=== PATIENT | female | born 1995 | race Caucasian/White ===

== ENCOUNTER 2017-10-30 14:41 | Emergency (ER) | payer OTHER ==
[~2017-10-30] VITALS: Ht 160 cm; Wt 74.8 kg
[2017-10-30] MEDS ORDERED: EFFIENT10 MG PO (14:50)
[2017-10-30 15:06] LABS: URINE BILIRUBIN NEGATIVE (Negative); URINE BLOOD 2+ (Negative); URINE CLARITY CLEAR; URINE COLOR YELLOW; URINE GLUCOSE-RANDOM NEGATIVE (Negative); URINE KETONES TRACE (Negative); URINE LEUKOCYTES-REFLEX NEGATIVE (Negative); URINE NITRITE-REFLEX NEGATIVE (Negative); URINE PROTEIN NEGATIVE (Negative); URINE SPECIFIC GRAVITY 1.025 (1.005-1.030)
[2017-10-30 15:19] LABS: BACTERIA-REFLEX >30 Many /HPF (None Seen); CASTS None Seen /LPF (None Seen); CRYSTALS None Seen /LPF (None Seen); MUCUS 4-6 Moderate strn/LPF (None Seen); SQUAMOUS 4-10 Moderate /LPF (0-3); TRANSITIONAL EPITHEL CELL 0-3 Few /LPF (None Seen); URINE WBC-REFLEX 0-5 Rare /HPF (0-5)
[2017-10-30 15:32] LABS: ABSOLUTE LYMPHOCYTES 3.3 thou/uL (0.8-5.3); ABSOLUTE MONOCYTES 0.8 thou/uL (0.0-1.2); ABSOLUTE NEUTROPHILS 4.3 thou/uL (1.6-8.1); BASOPHILS 0.4 %; EOSINOPHILS 0.4 %; HEMATOCRIT 34.4 % (37.0-47.0); HEMOGLOBIN 11.4 gm/dL (12.0-15.0); LYMPHOCYTES 39.1 %; MCH 29.7 pg (26.0-34.0); MCHC 33.2 g/dL (28.0-37.0); MCV 89.5 fL (80.0-100.0); MONOCYTES 9.2 %; MPV 7.6 fl. (7.2-11.1); NUCLEATED RBCS 0 /100WBC; PLATELET COUNT* 284 thou/uL (150-400); POLYS 50.9 %; RBC 3.85 mil/uL (4.20-5.00); RDW-CV 13.1 % (10.5-14.5); WBC 8.4 thou/uL (4.0-11.0)
[2017-10-30 15:42] LABS: CALCIUM 9.1 mg/dL (8.5-10.1); CREATININE 0.7 mg/dL (0.6-1.3); POTASSIUM 3.7 mmol/L (3.5-5.1)
[2017-10-30 15:47] LABS: ALBUMIN 3.6 g/dL (3.4-5.0); TOTAL BILIRUBIN 0.2 mg/dL (<0.1-1.0); TOTAL PROTEIN 6.9 g/dL (6.4-8.2)
[2017-10-30 16:20] VITALS: BP 101/62
== END 2017-10-30 16:22 | disposition home or self-care (01) ==
LOC: M.ERS 14:41
PROVIDERS: Nurse Practitioner Family
DX: H53.9 Unspecified visual disturbance (principal); R42 Dizziness and giddiness; F41.9 Anxiety disorder, unspecified

== ENCOUNTER 2020-03-18 00:35 | Emergency (ER) | payer OTHER ==
[~2020-03-18] VITALS: Ht 157.5 cm; Wt 59.0 kg
[~2020-03-18 00:35] MED LIST: EFFIENT10 MG PO
[2020-03-18 01:13] LABS: HEMATOCRIT 37.5 % (37.0-47.0); HEMOGLOBIN 12.3 gm/dL (12.0-15.0); MCHC 32.9 g/dL (28.0-37.0); MCV 91.3 fL (80.0-100.0); MPV 8.4 fl. (7.2-11.1); NUCLEATED RBCS 0 /100WBC; PLATELET COUNT* 244 thou/uL (150-400); RDW-CV 12.9 % (10.5-14.5); WBC 18.5 thou/uL (4.0-11.0)
[2020-03-18] MEDS ORDERED: PNV 29-1 TABLE1 EACH PO (01:15)
[2020-03-18 01:18] LABS: CALCIUM 9.5 mg/dL (8.5-10.1); CREATININE 0.7 mg/dL (0.6-1.3); POTASSIUM 3.6 mmol/L (3.5-5.1)
[2020-03-18 01:23] LABS: ALBUMIN 4.3 g/dL (3.4-5.0); TOTAL BILIRUBIN 0.4 mg/dL (<0.1-1.0); TOTAL PROTEIN 8.1 g/dL (6.4-8.2)
[2020-03-18 02:18] LABS: ABSOLUTE BASOPHILS 0.2 thou/uL (0.0-0.2); ABSOLUTE LYMPHOCYTES 1.1 thou/uL (0.8-5.3); ABSOLUTE MONOCYTES 0.2 thou/uL (0.0-1.2); PLATELET ESTIMATE ADEQUATE
[2020-03-18 03:48] VITALS: BP 102/52
--- NOTE | 2020-03-18 13:13 | EKG ---
[place] [address] ELECTROCARDIOGRAM REPORT Name: CLEMENTE DELGADO Room: [facility]#: [id number] Admission: 03/18/20 Attend Phys: Discharge: 03/18/20 Date of : [birth year] Date of Service: 03/18/204 Report #: [id number] THIS REPORT FOR: //name// [facility] ED Test Date: 2020-03-18 Test Time: 00:44:07 Pat Name: CLEMENTE DELGADO Department: Room: Gender: Beef Lugger: CHELY : 1995 Requested By: Anu Yi Order Number: [id number] Linn MD: Taj Bond Measurements Intervals [place] Rate: 78 P: 87 [place]: 133 QRS: 79 QRSD: 95 T: 57 QT: 403 QTc: 460 Interpretive Statements Sinus rhythm Baseline wander in lead(s) V2 No previous ECG available for comparison Electronically Signed On 03-18-2020 13:13:00 [employer] by Taj Bond [email or web address] <ELECTRONICALLY SIGNED> By: Taj Bond MD, [facility] 03/18/20 1313 0044 Taj Bond MD, [facility] /EPI
== END 2020-03-18 03:48 | disposition home or self-care (01) ==
LOC: M.ERS 00:35
PROVIDERS: Personal Emergency Response Attendant
DX: O21.0 Mild hyperemesis gravidarum (principal); Z3A.11 11 weeks gestation of pregnancy; Z79.899 Other long term (current) drug therapy